=== PATIENT | male | born 1960 | race Asian ===

== ENCOUNTER 2018-07-18 22:36 | Emergency (ER) | payer OTHER ==
[~2018-07-18] VITALS: Ht 167.6 cm; Wt 93.0 kg
[2018-07-18 23:26] VITALS: BP 148/90; TEMP 97.9
== END 2018-07-18 23:26 | disposition home or self-care (01) ==
LOC: ED 22:36
PROC: 0W933ZZ Drainage of Oral Cavity and Throat, Percutaneous Approach (ICD-10-PCS; principal; 2018-07-18)
DX: K04.7 Periapical abscess without sinus (principal); R22.0 Localized swelling, mass and lump, head; I10 Essential (primary) hypertension; I25.10 Atherosclerotic heart disease of native coronary artery without angina pectoris
CPT/HCPCS: 87070; 87205; 96372; 99282; J0696

== ENCOUNTER 2018-11-08 09:13 | Emergency (ER) | payer OTHER ==
[~2018-11-08] VITALS: Ht 167.6 cm; Wt 93.0 kg
[2018-11-08 09:23] VITALS: TEMP 97.7
[2018-11-08 10:27] VITALS: BP 130/80
== END 2018-11-08 10:27 | disposition home or self-care (01) ==
LOC: ED 09:13
DX: M54.89 Other dorsalgia (principal); G89.29 Other chronic pain; M25.561 Pain in right knee
CPT/HCPCS: 96372; 99282; J1885

== ENCOUNTER 2019-01-07 10:02 | Outpatient (CLI) | payer OTHER | END 2019-01-07 23:01 | disposition home or self-care (01) | LOC: RAD 10:02 | DX: R04.2 Hemoptysis (principal) ==

== ENCOUNTER 2019-05-23 06:39 | Emergency (ER) | payer OTHER ==
[~2019-05-23] VITALS: Ht 167.6 cm; Wt 86.2 kg
[2019-05-23 06:47] VITALS: TEMP 98.1
[2019-05-23 07:44] VITALS: BP 140/90
== END 2019-05-23 07:44 | disposition home or self-care (01) ==
LOC: ED 06:39
DX: M62.830 Muscle spasm of back (principal)
CPT/HCPCS: 96372; 99283; J1885

== ENCOUNTER 2019-05-27 09:34 | Emergency (ER) | payer OTHER ==
[~2019-05-27] VITALS: Ht 167.6 cm; Wt 90.7 kg
[2019-05-27 09:40] VITALS: TEMP 97.7
[2019-05-27 11:00] VITALS: BP 101/61
== END 2019-05-27 11:00 | disposition home or self-care (01) ==
LOC: ED 09:34
DX: M54.5 Low back pain (principal); M79.89 Other specified soft tissue disorders
CPT/HCPCS: 96372; 99282; J1885

== ENCOUNTER 2019-07-25 09:24 | Outpatient (CLI) | payer OTHER | END 2019-07-25 22:39 | disposition home or self-care (01) | LOC: MRI 09:24 | DX: M54.5 Low back pain (principal); M79.606 Pain in leg, unspecified; M62.81 Muscle weakness (generalized); G62.9 Polyneuropathy, unspecified; M54.30 Sciatica, unspecified side ==

== ENCOUNTER 2019-08-28 12:06 | Emergency (ER) | payer OTHER ==
[~2019-08-28] VITALS: Ht 170.2 cm; Wt 90.7 kg
[2019-08-28 12:45] VITALS: BP 159/95; TEMP 97.9
== END 2019-08-28 12:45 | disposition home or self-care (01) ==
LOC: ED 12:06
DX: M54.5 Low back pain (principal); M54.17 Radiculopathy, lumbosacral region
CPT/HCPCS: 99281

== ENCOUNTER 2020-07-15 13:48 | Outpatient (CLI) | payer OTHER ==
[2020-07-15 14:39] LABS: POTASSIUM 4.5 mmol/L (3.6-5.2)
[2020-07-15 14:44] LABS: PLATELET COUNT 184 K/uL (142-355)
== END 2020-07-15 19:27 | disposition home or self-care (01) ==
LOC: LAB 13:48
PROVIDERS: ATTEND Nurse Practitioner
DX: I10 Essential (primary) hypertension (principal)
CPT/HCPCS: 80053; 80061; 84154; 84443; 85027

== ENCOUNTER 2020-07-29 09:53 | Outpatient (CLI) | payer OTHER | END 2020-07-29 19:02 | disposition home or self-care (01) | LOC: US 09:53 | PROVIDERS: ATTEND Nurse Practitioner | DX: R94.5 Abnormal results of liver function studies (principal) ==

== ENCOUNTER 2020-07-30 12:43 | Emergency (ER) | payer OTHER ==
[~2020-07-30] VITALS: Ht 170.2 cm; Wt 90.7 kg
[2020-07-30 12:59] VITALS: BP 134/91; TEMP 97
== END 2020-07-30 14:46 | disposition home or self-care (01) ==
LOC: ED 12:43
DX: M54.89 Other dorsalgia (principal); G89.29 Other chronic pain
CPT/HCPCS: 96372; 99283; J2175

== ENCOUNTER 2020-08-12 09:48 | Outpatient (CLI) | payer OTHER | END 2020-08-12 21:20 | disposition home or self-care (01) | LOC: LABW 09:48 | PROVIDERS: ATTEND Nurse Practitioner | DX: R73.9 Hyperglycemia, unspecified (principal); R94.5 Abnormal results of liver function studies | CPT/HCPCS: 36415; 80074; 83036 ==

== ENCOUNTER 2020-08-27 18:35 | Emergency (ER) | payer OTHER ==
[~2020-08-27] VITALS: Ht 170.2 cm; Wt 90.7 kg
[2020-08-27 21:05] VITALS: BP 146/74; TEMP 99.1
== END 2020-08-27 21:04 | disposition home or self-care (01) ==
LOC: ED 18:35
DX: S00.03XA Contusion of scalp, initial encounter (principal); S16.1XXA Strain of muscle, fascia and tendon at neck level, initial encounter; S43.492A Other sprain of left shoulder joint, initial encounter; V89.2XXA Person injured in unspecified motor-vehicle accident, traffic, initial encounter; Y92.89 Other specified places as the place of occurrence of the external cause
CPT/HCPCS: 96372; 99283; J1885

== ENCOUNTER 2020-09-15 10:12 | Outpatient (CLI) | payer OTHER | END 2020-09-15 21:46 | disposition home or self-care (01) | LOC: LABW 10:12 | PROVIDERS: ATTEND Specialist | DX: E11.42 Type 2 diabetes mellitus with diabetic polyneuropathy (principal) | CPT/HCPCS: 36415; 82607; 85652; 86225 ==

== ENCOUNTER 2020-10-22 17:50 | Outpatient (CLI) | payer OTHER ==
[2020-10-22 17:59] LABS: PLATELET COUNT 182 K/uL (142-355)
[2020-10-22 18:18] LABS: POTASSIUM 4.3 mmol/L (3.6-5.2)
== END 2020-10-22 21:50 | disposition home or self-care (01) ==
LOC: LAB 17:50
PROVIDERS: ATTEND Physician Assistant
DX: I10 Essential (primary) hypertension (principal); E11.9 Type 2 diabetes mellitus without complications; I25.10 Atherosclerotic heart disease of native coronary artery without angina pectoris; K76.0 Fatty (change of) liver, not elsewhere classified
CPT/HCPCS: 80053; 80061; 83036; 84443; 85027

== ENCOUNTER 2021-11-17 14:02 | Outpatient (CLI) | payer OTHER | END 2021-11-17 19:13 | disposition home or self-care (01) | LOC: US 14:02 | PROVIDERS: ATTEND Nurse Practitioner Primary Care | DX: E05.90 Thyrotoxicosis, unspecified without thyrotoxic crisis or storm (principal) ==

== ENCOUNTER 2022-02-01 10:09 | Outpatient (CLI) | payer OTHER | END 2022-02-01 18:58 | disposition home or self-care (01) | LOC: MRI 10:09 | PROVIDERS: ATTEND Physical Medicine & Rehabilitation Pain Medicine | DX: M54.12 Radiculopathy, cervical region (principal); M54.16 Radiculopathy, lumbar region ==

== ENCOUNTER 2022-08-25 02:02 | Emergency (ER) | payer OTHER ==
[~2022-08-25] VITALS: Ht 167.6 cm; Wt 88.5 kg
[2022-08-25 02:07] VITALS: TEMP 98.3
[2022-08-25 02:38] LABS: PLATELET COUNT 160 K/uL (142-355)
[2022-08-25 02:45] LABS: POTASSIUM 4.4 mmol/L (3.6-5.2)
[2022-08-25 02:56] LABS: PARTIAL THROMBOPLASTIN TIME 23.2 SECONDS (24.5-33.6)
[2022-08-25 05:30] VITALS: BP 151/95
== END 2022-08-25 05:30 | disposition home or self-care (01) ==
LOC: ED 02:02
PROVIDERS: Emergency Medicine
DX: M25.512 Pain in left shoulder (principal)
CPT/HCPCS: 36415; 80053; 84484; 85027; 85610; 85730; 93005; 96372; 99283; J1885; Q9963

== ENCOUNTER 2023-02-05 17:34 | Emergency (ER) | payer OTHER ==
[~2023-02-05] VITALS: Ht 167.6 cm; Wt 90.7 kg
[2023-02-05 18:36] LABS: PLATELET COUNT 166 K/uL (142-355)
[2023-02-05 19:47] VITALS: BP 162/103; TEMP 98.4
== END 2023-02-05 19:47 | disposition home or self-care (01) ==
LOC: ED 17:34
PROVIDERS: Family Medicine
DX: M54.9 Dorsalgia, unspecified (principal); M79.89 Other specified soft tissue disorders; M10.9 Gout, unspecified; I10 Essential (primary) hypertension; Z91.199 Patient's noncompliance with other medical treatment and regimen due to unspecified reason
CPT/HCPCS: 36415; 80307; 81002; 84550; 85027; 86140; 96372; 99283; J1885; J2930